=== PATIENT | female | born 1995 | race Caucasian/White ===

== ENCOUNTER 2023-11-16 19:17 | Emergency (ER) | payer BC, OTHER, SELFPAY ==
[~2023-11-16 19:17] MED LIST: Iopamidol 370 76% 100 ML VIAL ONE
[2023-11-16] MEDS ORDERED: Morphine 4 MG/ML VIAL ONE ×2 (19:41→21:23)
[2023-11-16] MEDS ORDERED: Ondansetron PF 4 MG/2 ML Vial ONE (19:41)
[2023-11-16 20:15] LABS: Bilirubin Negative (Negative); Blood, Urine Negative (Negative); Clarity Clear (Clear); Glucose, Urine (Dipstick) Negative (Negative); Ketone, Urine Negative (Negative); Leukocyte Negative (Negative); Nitrite Negative (Negative); Protein, Urine (Dipstick) Negative (Neg-Trace); Urobilinogen 0.2 mg/dL (Less than 2); pH, Urine 6.5 (5.0-9.0)
[2023-11-16 20:19] LABS: #Basophils 0.1 thou/uL (0.0-0.2); #Eosinphils 0.2 thou/uL (0.0-0.7); #Lymphocytes 2.6 thou/uL (1.20-3.40); #Monocytes 0.8 thou/uL (0.11-0.59); #Neutrophils 6.9 thou/uL (1.40-6.50); %Basophils 1.3 % (0.0-1.0); %Eosinophils 2.2 % (0.0-10.0); %Lymphocytes 24.3 % (21.0-51.0); %Monocytes 7.5 % (0.0-10.0); %Neutrophils 64.8 % (42.0-75.0); Hematocrit 39.9 % (36.0-47.0); Hemoglobin 13.6 g/dL (12.0-16.0); Mean Corpuscular Hemoglobin 30.6 pg (27.0-31.0); Mean Platelet Volume 8.6 fL (7.4-10.4); Platelet Count 312 10x3/uL (130-400); RBC Distribution Width 11.6 % (11.5-14.5); Red Blood Cell (RBC) Count 4.43 mill/uL (4.20-5.40); White Blood Cell (WBC) Count 10.6 10x3/uL (4.8-10.8)
[2023-11-16 20:22] LABS: BHCG - Serum Negative (NEGATIVE); Bacteria/HPF Rare-Few HPF (None Seen); CAUTI Indications for Culture Pelvic or flank pain; Pregs Control Background? CLEAR/WHITE (CLR/WHITE); Pregs Control Bar Appear? YES (CONTROL BAR); RBC/HPF None Seen HPF (0-3); WBC/HPF None Seen HPF (0-3)
[2023-11-16 20:24] LABS: Urine Culture Reflex No No
[2023-11-16 20:32] LABS: ALT (SGPT) 34 U/L (8-55); AST (SGOT) 29 U/L (5-34); Albumin 4.5 g/dL (3.5-5.0); Alkaline Phosphatase 66 U/L (40-110); Anion Gap 14 mmol/L (10-20); BUN (Urea Nitrogen) 11 mg/dL (7.0-18.7); Bilirubin, Total 0.3 mg/dL (0.2-1.2); Calc. Creatinine Clearance 0 mL/min (70-130); Calcium 9.3 mg/dL (7.8-10.44); Carbon Dioxide 22 mmol/L (22-29); Chloride 106 mmol/L (98-107); Estimated GFR 102; Globulin 2.7 g/dL (2.4-3.5); Glucose 136 mg/dL (70-105); Potassium 3.9 mmol/L (3.5-5.1); Protein, Total 7.2 g/dL (6.0-8.3); Sodium 138 mmol/L (136-145)
== END 2023-11-16 22:00 | disposition short-term general hospital (02) ==
LOC: MADERS 19:17
DX: R10.2 Pelvic and perineal pain (principal)
CPT/HCPCS: 74177; 80053; 81001; 84703; 85025; 94760; 96374; 96375; 96376; J2270; J2405; Q9967

== ENCOUNTER 2024-01-03 04:41 | Emergency (ER) | payer BC ==
[2024-01-03 05:02] LABS: Bilirubin Negative (Negative); Blood, Urine Trace (Negative); CAUTI Indications for Culture Pelvic or flank pain; Clarity Clear (Clear); Glucose, Urine (Dipstick) Negative (Negative); Ketone, Urine Negative (Negative); Leukocyte Negative (Negative); Nitrite Negative (Negative); Protein, Urine (Dipstick) Negative (Neg-Trace); RBC/HPF None Seen HPF (0-3); Urobilinogen 0.2 mg/dL (Less than 2); WBC/HPF 0-3 HPF (0-3); pH, Urine 7.5 (5.0-9.0)
[2024-01-03 05:03] LABS: Bacteria/HPF Rare-Few HPF (None Seen); Pregnancy Test - Urine (BHCG) Indeterminate (Negative); Pregu Control Background? CLEAR/WHITE (CLR/WHITE); Pregu Control Bar Appear? YES (CONTROL BAR); Squamous Epithelial 0-3 HPF (0-3)
[2024-01-03 05:05] LABS: Urine Culture Reflex No No
[2024-01-03] MEDS ORDERED: Ketorolac Tromethamine 30 MG (1 mL) VIAL ONE (05:19)
[2024-01-03] MEDS ORDERED: Ondansetron PF 4 MG/2 ML Vial ONE (05:19)
[2024-01-03] MEDS ORDERED: Lactated Ringer's 1,000 ML ONE (05:20)
[2024-01-03] MEDS ORDERED: Morphine 4 MG/ML VIAL ONE ×2 (05:20→08:40)
[2024-01-03 05:27] LABS: #Basophils 0.1 thou/uL (0.0-0.2); #Eosinphils 0.1 thou/uL (0.0-0.7); #Lymphocytes 2.3 thou/uL (1.20-3.40); #Monocytes 1.1 thou/uL (0.11-0.59); #Neutrophils 9.8 thou/uL (1.40-6.50); %Basophils 0.8 % (0.0-1.0); %Eosinophils 0.6 % (0.0-10.0); %Lymphocytes 17.3 % (21.0-51.0); %Monocytes 8.4 % (0.0-10.0); Hematocrit 35.4 % (36.0-47.0); Hemoglobin 11.7 g/dL (12.0-16.0); Mean Corpuscular HGB CONC 32.9 g/dL (32.0-36.0); Mean Corpuscular Hemoglobin 30.2 pg (27.0-31.0); Mean Corpuscular Volume 91.5 fl (78.0-98.0); Mean Platelet Volume 7.8 fL (7.4-10.4); Platelet Count 265 10x3/uL (130-400); Red Blood Cell (RBC) Count 3.87 mill/uL (4.20-5.40); White Blood Cell (WBC) Count 13.4 10x3/uL (4.8-10.8)
[2024-01-03 05:47] LABS: ALT (SGPT) 24 U/L (8-55); AST (SGOT) 17 U/L (5-34); Albumin 3.4 g/dL (3.5-5.0); Alkaline Phosphatase 51 U/L (40-110); Anion Gap 13 mmol/L (10-20); BUN (Urea Nitrogen) 12 mg/dL (7.0-18.7); Bilirubin, Total 0.4 mg/dL (0.2-1.2); Calc. Creatinine Clearance 0 mL/min (70-130); Calcium 8.9 mg/dL (7.8-10.44); Carbon Dioxide 21 mmol/L (22-29); Chloride 104 mmol/L (98-107); Estimated GFR 122; Globulin 2.9 g/dL (2.4-3.5); Glucose 103 mg/dL (70-105); Lipase 10 U/L (8-78); Potassium 4.1 mmol/L (3.5-5.1); Protein, Total 6.3 g/dL (6.0-8.3); Sodium 134 mmol/L (136-145)
[2024-01-03] MEDS ORDERED: Sodium Chloride 0.9% 1,000 ML ONE (08:41)
[2024-01-03] MEDS ORDERED: Iopamidol 370 76% 100 ML VIAL ONE (09:00)
[2024-01-03 09:03] LABS: Hematocrit 32.5 % (36.0-47.0); Hemoglobin 10.7 g/dL (12.0-16.0)
== END 2024-01-03 09:38 | disposition home or self-care (01) ==
LOC: MADERS 04:41
DX: N98.1 Hyperstimulation of ovaries (principal); N80.9 Endometriosis, unspecified; E28.2 Polycystic ovarian syndrome
CPT/HCPCS: 71046; 74178; 80053; 81001; 81025; 83690; 84702; 85025; 96374; 96375; 96376; J1885; J2270; J2405; J7050; J7120; Q9967